=== PATIENT | female | born 1975 | race Caucasian/White ===

== ENCOUNTER 2022-02-25 09:30 | Emergency (ER) | payer MEDICARE, OTHER ==
[~2022-02-25 09:30] MED LIST: AIMOVIG AU70 MG/1 ML SC; ALBUTEROL INHALER; AMITIZA8 MCG PO; ANORO ELLIPTA1 EACH INH; ATARAX25 MG PO; BENZOTROPINE PO; BUSPIRONE HCL15 MG PO; BUTORPHANO10 MG/1 ML; CARAFATE1 G1 PO; CLARITIN10 MG PO; COLACE100 MG PO; DEPAKOTE250 MG PO; DOCUSATE SODIU100 M1 PO; INDERAL LA160 MG PO; LATUDA80 MG PO; LINZESS290 MCG PO; LIPITOR20 MG PO; LITHIUM300 MG PO; MIRAPEX0.25 MG PO; NEURONTIN300 MG PO; NORCO 5-325 TA1 EAC1 PO; NORCO 5-325 TA1 EACH PO; OXYCONTIN 10MG10 MG PO; PERCOCET 10/321 EACH PO; PHENERGAN25 M1 PO; PRINIVIL20 MG PO; PROTONIX 40MG T40 MG PO; RELISTOR150 MG PO; SEROQUEL 100MG100 MG PO; SEROQUEL200 MG PO; SINGULAIR 10MG10 MG PO; SYNTHROID112 MCG PO; TENORMIN50 MG PO; TOPAMAX100 MG PO; TOPIRAMATE100 MG PO; TRIAMTERENE50 MG PO; TRILIGY INH; VITAMIN A PO; VITAMIN D PO; ZANTAC150 MG PO; ZOLOFT50 MG PO; [UNRECOGNIZED DRUG - OTHER]
[2022-02-25 10:32] LABS: BASOPHIL 0.4 % (0-2); EOSINOPHIL 1.4 % (0-5); HCT 43.9 % (37.0-47.0); HGB 14.6 g/dl (12.5-16.0); LYMPHOCYTE 29.1 % (15-48); MCH 32.5 pg (25.0-31.0); MCHC 33.3 g/dL (32.0-36.0); MCV 97.8 fL (78.0-100.0); MPV 10.8 fL (6.0-9.5); NEUTROPHIL 61.8 % (41-80); NRBC 0; PLT 196 K/uL (150-400); RBC 4.49 M/uL (4.20-5.40); RDW 12.9 % (11.5-14.0); WBC 11.4 K/uL (4.0-10.5)
[2022-02-25 10:53] LABS: BUN/CREAT RATIO (CALC) 14.4 RATIO; CREATININE 1.11 mg/dL (0.51-0.95); POTASSIUM 3.1 mmol/L (3.5-5.1)
[2022-02-25] MEDS ORDERED: PREDNISONE 20MG20 MG PO (12:53)
== END 2022-02-25 13:05 | disposition home or self-care (01) ==
LOC: FER 09:30
PROVIDERS: Emergency Medicine
DX: M94.0 Chondrocostal junction syndrome [Tietze] (principal); J44.1 Chronic obstructive pulmonary disease with (acute) exacerbation; F17.210 Nicotine dependence, cigarettes, uncomplicated; Z88.6 Allergy status to analgesic agent; Z20.822 Contact with and (suspected) exposure to COVID-19; Z28.311 Partially vaccinated for COVID-19
CPT/HCPCS: 36415; 71046; 80048; 84484; 85025; 93005; 94640; J2930; U0002